=== PATIENT | male | born 1990 | race Hispanic/Latino ===

== ENCOUNTER 2019-06-19 05:46 | Inpatient (IN) ==
[2019-06-19] MEDS ORDERED: NS 1,000 ML IV ONE (06:13)
[2019-06-19] MEDS ORDERED: TORADOL IV ONE (06:13)
--- NOTE | 2019-06-19 06:15 | PROVIDER DOCUMENTATION ---
HPI-Abdominal Pain/GI Problem - General Chief Complaint: Abdominal Pain Stated Complaint: ABD PAIN Time Seen by Provider: 06/19/19 06:01 Home Medications: Home Medication List Medication Instructions Recorded Confirmed Last Taken Type NK [No Home Medications] 06/19/19 06/19/19 Unknown History - History of Present Illness-ABD Nature of Presenting Problems: Pt is a 28 y/o male who presents with c/o abd pain since last night. Pain is present in the lower abd and it radiates to the left, 10/10. associated with difficulty urinating. Per pt has some nausea and low grade fever. Denies any blood in the urine or chills. Denies any constipation or diarrhea. Pt says he had similar pain 4 weeks ago and it was not this bad and resolved. Pt is panamanian speaking and his friend is translating for him. Review of Systems - Adult - REVIEW OF SYSTEMS - ADULT Constitutional: denies: no symptoms reported Eyes: denies: no symptoms reported Ears, Nose, Mouth & Throat: denies: no symptoms reported Cardiovascular: denies: no symptoms reported Respiratory: denies: no symptoms reported Gastrointestinal: reports: see HPI Genitourinary: reports: see HPI, dysuria, flank pain, hesitency. denies: discharge, frequency, frequent UTI's, urinary retention, urgency Musculoskeletal: denies: no symptoms reported Integumentary: denies: no symptoms reported Neurological: denies: no symptoms reported Psychiatric: denies: no symptoms reported Endocrine: denies: no symptoms reported Hematologic/Lymphatic: denies: no symptoms reported Allergic/Immunologic: denies: no symptoms reported Past History - Adult - PAST MEDICAL HISTORY-ADULT Review of Records: reports: Nursing Assessment Review, Medications Reviewed, Social history reviewed & non-contributory. Physical Exam-General - PHYSICAL EXAM-ADULT Initial Vital Signs Reviewed: Yes - CONSTITUTIONAL General Appearance: appears well, alert, mild distress - EYES Eyes: PERRL/EOMI - HEAD, EARS, NOSE, MOUTH & THROAT HENMT: normocephalic/atraumatic, moist mucous membranes, normal ENT inspection - NECK Neck: supple - RESPIRATORY Respiratory: lungs clear, normal breath sounds, no respiratory distress, no accessory muscle use - CARDIOVASCULAR Cardiovascular: regular rate, rhythm, no edema, no JVD, no murmur - GASTROINTESTINAL (ABDOMEN) Abdominal Exam: distended, tenderness (gehneralized, but more pronounced in Suprapubic and LLQ). negative: guarding, rigid - MUSCULOSKELETAL Back Exam: no vertebral tenderness, CVA tenderness (left) Extremity: no pedal edema - SKIN Integumentary: normal color, warm/dry - NEUROLOGIC Neurologic: grossly normal - PSYCHIATRIC Psych/Mental Status: normal mood/affect, oriented x 3 Progress - PLAN OF CARE/RESULTS Progress/Plan/Lab Results: Vital Signs - 8 hr 06/19/19 05:52 Temperature 98.9 F Pulse Rate 87 Respiratory Rate 18 Blood Pressure 122/84 O2 Sat by Pulse Oximetry 98 Orders Category Date Time Status Saline Loc NOW Care 06/19/19 06:[address] ABDOMEN/PELVIS W/O CONTRAST [CT] Stat Exams 06/19/19 06:13 Ordered AMYLASE [CHEM] Stat Lab 06/19/19 06:13 Uncollected CBC WITH ELECTRONIC DIFF [HEME] Stat Lab 06/19/19 06:13 Uncollected COMPREHENSIVE METABOLIC PANEL [CHEM] Stat Lab 06/19/19 06:13 Uncollected LACTATE, PLASMA [CHEM] Stat Lab 06/19/19 06:13 Uncollected LIPASE [CHEM] Stat Lab 06/19/19 06:13 Uncollected UA NIMS W/REFLEX CULT [URINALYSIS] Stat Lab 06/19/19 06:13 Uncollected Ketorolac [Toradol] Med 06/19/19 06:13 Once 30 mg IV NOW ONE Ns 1000 ml IV Bolus X1 Med 06/19/19 06:13 Ordered 0.9% Sodium Chloride Inj [Ns] 1,000 ml IV 999 mls/hr Result Diagrams: 06/19/19 06:12 06/19/19 06:12 - CT/MRI 1 CT Study: Abdomen, Pelvis Impression: Abnormal, See EMR Report - CONSULTS/PCP/HOSPITALIST Notification #1 *Consult/PCP/Hospitalist*: Dr Carl Time Discussed: 08:00 Consult Disposition: Will see in ED Departure - Departure Date of Disposition Decision: 06/19/19 Time of Disposition Decision: 08:04 DIAGNOSIS: Acute appendicitis Disposition: ADMITTED INPATIENT 09 Certified Medical Emergency: Emergent Condition: Stable Referrals and Follow-Ups: None,PCP [Primary Care Provider] - - Critical Care Note This patient required my direct & personal management of CC.: No Attestation - Physician/ JUAN RAMON Attestation Patient care was provided by Advanced Practice Provider:: No The physician spent face to face time with patient:: Yes Advanced Practice Provider documentation review:: Supervising physician onsite and consulted in the evaluation and care of this patient. The physician did have a face to face encounter with the patient.
[2019-06-19 06:35] LABS: BASO# 0.02 X1000 (0.0-0.2); BASO% 0.1 % (0.0-0.8); EOS# 0.04 X1000 (0.0-0.7); EOS% 0.3 % (0.0-10.0); HEMATOCRIT 46.1 % (42.0-52.0); HEMOGLOBIN 14.9 g/dL (14.0-18.0); IMM GRAN# 0.04 X1000 (0.0-0.04); IMM GRAN% 0.3 % (0.0-0.5); LYMPH% 14.4 % (20.5-51.1); MCH 27.9 PG (27-31); MCHC 32.3 g/dL (33-37); MCV 86.2 FL (81-99); MONO# 0.98 X1000 (0.11-0.59); MPV 8.8 FL (7.4-10.4); NEUT# 10.84 X1000 (1.4-6.5); NEUT% 77.9 % (42.2-75.2); PLT 263 X1000 (130-400); RBC 5.35 XMIL (4.7-6.1); RDW 13.5 % (11.5-14.5); WBC 13.92 X1000 (4.8-10.8)
[2019-06-19 07:09] LABS: AGAP 12; ALBUMIN 4.2 g/dL (3.5-5.0); ALKALINE PHOSPHATASE 117 U/L (32-122); AMYLASE 85 U/L (20-200); BUN 11 mg/dL (8-22); CALCIUM 9.3 mg/dL (8.8-10.2); CHLORIDE 103 mmol/L (98-107); COSMO 277; CREATININE 0.8 mg/dL (0.7-1.2); ESTIMATED GFR > 60; GLUCOSE 141 mg/dL (70-104); GOT 32 U/L (10-34); GPT 91 U/L (10-44); LIPASE 26 U/L (13-60); SODIUM 138 mmol/L (136-145); TCO2 23 mmol/L (25-35); TOTAL BILIRUBIN 0.65 mg/dL (0.20-1.00); TOTAL PROTEIN 8.5 g/dL (6.3-8.3)
--- NOTE | 2019-06-19 07:17 | Diag Imaging Result Doc PS360 ---
EXAM: CT ABDOMEN/PELVIS W/O CONTRAST INDICATION: ABD PAIN TECHNIQUE: This exam was performed using automated exposure control, adjustment of mA or kV according to patient size, and/or use of iterative reconstruction technique. COMPARISON: None. FINDINGS: There is mild subsegmental atelectasis at the lung bases. There is moderate to advanced hepatic steatosis. The gallbladder, spleen, pancreas, and adrenal glands are unremarkable. The kidneys and urinary bladder are unremarkable. The appendix is markedly dilated and there is extensive periappendiceal inflammatory stranding indicating appendicitis. The diameter of the appendix measures up to 2.7 cm and there is a phlebolith in the lumen of the appendix. No free abdominal gas is identified. There is a small amount of free fluid layering in the pelvis. I can identify no well-defined abscess. However, small abscesses may not be visible on unenhanced studies. The remainder of the GI tract is unremarkable. IMPRESSION: 1.Marked appendiceal thickening and extensive periappendiceal inflammatory stranding consistent with acute appendicitis. Please see above discussion. 2.Hepatic steatosis. Electronically signed by Emery Jennings 06/19/2019 7:14 AM
[2019-06-19] MEDS ORDERED: ZOSYN 4.5 GM in NS 100 ML IV ONE (08:03)
--- NOTE | 2019-06-19 09:29 | HISTORY AND PHYSICAL ---
CHIEF COMPLAINT: Abdominal pain. HISTORY OF PRESENT ILLNESS: This is a 28-year-old male who presents with severe right lower and left lower abdominal pain that began yesterday afternoon and evening. It has been constant and progressive in severity until he presented the ER and received some pain medicine. It has lessened some since then. The pain was worse with movement, especially walking. Some subjective fever is noted as well as dysuria. However, no chest pain, shortness of breath, diarrhea, constipation or other systemic complaints. PAST MEDICAL HISTORY: None. PAST SURGICAL HISTORY: None. HOME MEDICATIONS: None. ALLERGIES: No known drug allergies. SOCIAL HISTORY: He has a remote history of smoking but has stopped for several years. No alcohol or illicit drug use. He is originally from [place], [place] the country now [place] about 6 [place]. FAMILY HISTORY: Reviewed and noncontributory. REVIEW OF SYSTEMS: Ten systems reviewed and negative except as noted above. PHYSICAL EXAMINATION: VITAL SIGNS: Temperature 100.8 degrees, pulse 96, respirations 17, blood pressure 132/85, O2 saturation 95%. GENERAL: Well-developed, well-nourished male in no distress who looks his stated age. HEENT: Normocephalic, atraumatic. Extraocular muscles intact. Pupils equal, round, reactive to light. Sclerae anicteric. Mucous membranes somewhat dry. NECK: Supple, no thyromegaly. CV: Mildly tachycardic and regular. RESPIRATORY: No increased work of breathing. GI: Soft, mildly distended. He is diffusely tender especially in the right lower quadrant. He has a Rovsing sign. He has a positive heel tap. EXTREMITIES: No clubbing, cyanosis, or edema. SKIN: Warm and dry. No rash. MUSCULOSKELETAL: Moves all extremities equally and well. LABORATORY: White blood cell count 13.9, hemoglobin 14.9, platelet count 263,000. Complete metabolic profile reviewed and unremarkable. IMAGING: CT of abdomen and pelvis was reviewed showing a markedly dilated appendix with extensive periappendiceal inflammatory stranding with a phlebolith in the lumen of the appendix. There is no free abdominal gas. There is a small amount of free fluid in the pelvis. ASSESSMENT AND PLAN: A 28-year-old male with acute appendicitis. There is a possibility of a focal perforation or early abscess. He is hemodynamically stable and I have recommended laparoscopic versus open appendectomy today. I discussed the risks and benefits with him including bleeding, infection, incisional hernia, injury to surrounding organs such as the intestines and other imponderables. He understands and agrees to proceed. cc: Benedicto Carl MD
[2019-06-19] MEDS: NS 1,000 ML IV SCH ×3 (09:30→23:48)
[2019-06-19 09:56] LABS: URINE SOURCE CLEAN CATCH
[2019-06-19] MEDS ORDERED: OFIRMEV 1000 MG/ISOTONIC SOLN 1,000 MG/100 ML BOTTLE IV ONE (10:00)
[2019-06-19 10:08] LABS: BILIRUBIN URINE NEGATIVE (NEGATIVE); BLOOD URINE NEGATIVE (NEGATIVE); COLOR YELLOW; GLUCOSE URINE NEGATIVE (NEGATIVE); KETONE URINE NEGATIVE (NEGATIVE); LEUKOCYTES URINE NEGATIVE (NEGATIVE); NITRITE URINE NEGATIVE (NEGATIVE); PROTEIN URINE TRACE mg/dL (NEGATIVE); SP GRAVITY URINE 1.024; TURBIDITY URINE CLEAR (CLEAR); UROBILINOGEN URINE NORMAL (NORMAL)
[2019-06-19 10:12] LABS: UR EPITHELIAL CELLS <10 /HPF (<10); URINE BACTERIA NEGATIVE /HPF; URINE RBC <10 /HPF (<10); URINE WBC <10 /HPF (<10)
[2019-06-19] MEDS ORDERED: HURRICAINE SPRAY (DOSE) ONE (10:19)
[2019-06-19] MEDS ORDERED: SENSORCAINE 0.5%-EPI 1:200,000 ONE (10:21)
[2019-06-19] MEDS ORDERED: XYLOCAINE-MPF 2% ONE ×2 (10:22→11:15)
[2019-06-19] MEDS ORDERED: ROBINUL ONE ×2 (10:22→10:26)
[2019-06-19] MEDS ORDERED: DIPRIVAN 1% ONE (10:22)
[2019-06-19] MEDS ORDERED: LR 1,000 ML ONE (10:22)
[2019-06-19] MEDS ORDERED: VERSED ONE (10:22)
[2019-06-19] MEDS ORDERED: FENTANYL ONE (10:22)
[2019-06-19] MEDS ORDERED: QUELICIN (DOSE) ONE (10:26)
[2019-06-19] MEDS ORDERED: ZEMURON ONE ×4 (10:26→11:52)
[2019-06-19] MEDS ORDERED: NEOSTIGMINE ONE (10:28)
[2019-06-19] MEDS ORDERED: DECADRON ONE (10:50)
[2019-06-19] MEDS ORDERED: ZOFRAN ONE (10:50)
[2019-06-19] MEDS ORDERED: OFIRMEV 1000 MG/ISOTONIC SOLN 1,000 MG/100 ML BOTTLE ONE (11:02)
[2019-06-19] MEDS ORDERED: DILAUDID ONE (11:59)
[2019-06-19] MEDS ORDERED: SODIUM CHLORIDE 0.9% 10 ML ONE (11:59)
[2019-06-19 13:19] LABS: URINE SOURCE CATH
[2019-06-19] MEDS ORDERED: NS 1,000 ML ONE (13:20)
[2019-06-19 13:33] LABS: BILIRUBIN URINE NEGATIVE (NEGATIVE); BLOOD URINE NEGATIVE (NEGATIVE); COLOR YELLOW; GLUCOSE URINE NEGATIVE (NEGATIVE); KETONE URINE NEGATIVE (NEGATIVE); LEUKOCYTES URINE NEGATIVE (NEGATIVE); NITRITE URINE NEGATIVE (NEGATIVE); PH URINE 6.5; PROTEIN URINE 30 mg/dL (NEGATIVE); SP GRAVITY URINE 1.024; TURBIDITY URINE CLEAR (CLEAR); UROBILINOGEN URINE NORMAL (NORMAL)
[2019-06-19 13:38] LABS: UR EPITHELIAL CELLS <10 /HPF (<10); URINE BACTERIA NEGATIVE /HPF; URINE RBC <10 /HPF (<10); URINE WBC <10 /HPF (<10)
[2019-06-19] MEDS ORDERED: TYLENOL PO PRN (14:26)
[2019-06-19] MEDS ORDERED: ZOFRAN IV PRN (14:26)
[2019-06-19] MEDS: ZOSYN 3.375 GM in NS 50 ML IV SCH ×2 (16:38→20:32)
[2019-06-19] MEDS: DILAUDID IV PRN ×2 (19:40→22:47)
--- NOTE | 2019-06-19 20:11 | OPERATIVE NOTE ---
PROCEDURE DATE: 06/19/2019 PREOPERATIVE DIAGNOSIS: Acute appendicitis. POSTOPERATIVE DIAGNOSIS: Ruptured appendicitis. SURGEON: Benedicto Carl MD PATIENT SUPPORT TECH: Evangelista Lopez MD. 2ND PATIENT SUPPORT TECH: lIa TALAMANTES. PROCEDURE: 1. Diagnostic laparoscopy. 2. Open appendectomy with drainage of intra-abdominal abscess. ANESTHESIA: General. ESTIMATED BLOOD LOSS: 50 mL. COMPLICATIONS: None apparent. SPECIMENS: Appendix. FINDINGS: He had a large appendiceal phlegmon with purulent fluid in the right lower quadrant, pericolic gutter, and pelvis, consistent with a ruptured appendicitis. TECHNIQUE: He was brought to the operating room and placed supine on the table. General anesthesia was induced. He was prepped and draped in the usual sterile fashion. 0.25% Marcaine with epinephrine was used to anesthetize our incisions. A 12 mm incision was made just above the umbilicus. The fascia was exposed and incised sharply. Entry into the peritoneal cavity was obtained under direct vision with the Optiview device. Pneumoperitoneum was established. The camera was inserted. There was no evidence of injury to underlying structures. He was placed in Trendelenburg. Two 5 mm incision ports were placed under direct vision, one in the left lower quadrant, and one in the lower suprapubic midline. I began by exploring the right lower quadrant and found the above findings. We suctioned out some of the purulent fluid and sent it for culture. After several minutes, it became apparent that visualization was poor. The phlegmon was going to be very difficult to mobilize laparoscopically, and I felt it would be safer to do this operation through an open incision. I then made an oblique incision in the right lower quadrant in the McBurney's fashion and carried this down through the subcutaneous tissue, first with the knife, then cautery. We opened the anterior fascia with cautery and then opened the posterior fascia with cautery. Along the way, I did ligate the inferior epigastric vessel proximally and distally with 3-0 silk. Once we were safely in the abdominal cavity, I then placed a wound protector and proceeded to mobilize the cecum and ascending colon along the white line of Toldt using electrocautery, and began dissecting the ascending colon up out of the retroperitoneum, bringing it toward our wound. Using finger fracture technique, I was able to separate the phlegmonous mass around the appendix away from the terminal ileum and cecum, also using cautery to divide the fibrinous rind around it. I did come across the appendiceal artery with cautery and suture ligated the proximal end with 3-0 silk. Once we had all of the soft tissue isolated around the stump of the appendix coming off the cecum, the base of the appendix appeared to have an area of rupture, but was soft and pliable and nondistended, and I felt I could transect the base safely. The stump was ligated with 2-0 silk. I then transected the remaining portion of the appendix with the scissors and it was passed off the field. The stump of the appendix was then oversewn with a 3-0 silk [id number] Lembert type suture. We then washed out the pelvis, right lower quadrant, right pericolic gutter and up over the liver with warm saline and suctioned this out. A stab incision was made in the right lower quadrant and a Nick drain was brought in through this incision along the appendiceal stump in the right lower quadrant. Dr. Lopez was present throughout all braun portions of the case and was very helpful for retraction and exposure, holding the bowel out of the way while the appendix could be isolated and resected, and assisting with the closure. I closed the peritoneum with a running #1 Vicryl. I closed the camera supraumbilical port site incision with a [id number] 0 Vicryl. The ports were removed. The anterior fascia in the right lower quadrant was closed with a running #1 Maxon. The skin was closed with skin clips. He was awakened in stable condition and transferred to the recovery room without apparent complication. cc: Benedicto Carl MD
[2019-06-20] MEDS: ZOSYN 3.375 GM in NS 50 ML IV SCH ×4 (02:11→20:13)
[2019-06-20] MEDS: DILAUDID IV PRN ×2 (03:44→08:20)
[2019-06-20 08:16] LABS: AGAP 12; BUN 10 mg/dL (8-22); CALCIUM 8.6 mg/dL (8.8-10.2); CHLORIDE 103 mmol/L (98-107); COSMO 278; CREATININE 0.7 mg/dL (0.7-1.2); ESTIMATED GFR > 60; GLUCOSE 125 mg/dL (70-104); POTASSIUM 4.2 mmol/L (3.5-5.1); SODIUM 139 mmol/L (136-145); TCO2 24 mmol/L (25-35)
[2019-06-20 08:17] LABS: BASO# 0.01 X1000 (0.0-0.2); BASO% 0.1 % (0.0-0.8); HEMATOCRIT 39.3 % (42.0-52.0); HEMOGLOBIN 12.5 g/dL (14.0-18.0); IMM GRAN# 0.03 X1000 (0.0-0.04); IMM GRAN% 0.2 % (0.0-0.5); LYMPH# 1.71 X1000 (1.2-3.4); LYMPH% 10.4 % (20.5-51.1); MCH 27.5 PG (27-31); MCHC 31.8 g/dL (33-37); MCV 86.6 FL (81-99); MONO# 1.31 X1000 (0.11-0.59); MONO% 7.9 % (1.7-9.3); MPV 8.9 FL (7.4-10.4); NEUT# 13.45 X1000 (1.4-6.5); NEUT% 81.4 % (42.2-75.2); PLT 244 X1000 (130-400); RBC 4.54 XMIL (4.7-6.1); RDW 13.3 % (11.5-14.5); WBC 16.51 X1000 (4.8-10.8)
[2019-06-20] MEDS: NS 1,000 ML IV SCH (08:21)
[2019-06-20] MEDS: PERIDEX MT SCH ×2 (08:22→20:13)
--- NOTE | 2019-06-20 10:36 | GENERAL SURGERY PROGRESS NOTE ---
DATE: 06/20/2019 SUBJECTIVE: The patient is doing better. He only reports a small amount of pain. No nausea. He is tolerating a clear liquid diet. OBJECTIVE: Vital signs: He is afebrile. Vital signs are stable. General: He is awake, alert, oriented x3. No acute distress. Gastrointestinal: Soft, appropriately tender. Incisional dressing is clean and dry. GAYATHRI drain serosanguineous. URINE OUTPUT: 2100 mL. LABORATORY DATA: White blood cell count 53511, hemoglobin 12.5, hematocrit 39. Electrolytes reviewed and unremarkable. ASSESSMENT AND PLAN: A 28-year-old male, postoperative day 1, open appendectomy with drainage of intra-abdominal abscess. We will continue his Zosyn. I have encouraged more activity. We will advance his diet as tolerated. Switch him to maintenance fluids and oral pain medicine and discontinue the Desir catheter. cc: Benedicto Carl MD
[2019-06-20] MEDS: D5 1/2 NS + KCL 20 MEQ 1,000 ML IV SCH ×2 (11:49→22:59)
[2019-06-20] MEDS: NORCO-10 PO PRN ×2 (13:43→20:09)
[2019-06-21] MEDS: ZOSYN 3.375 GM in NS 50 ML IV SCH ×4 (01:26→20:29)
[2019-06-21 07:49] LABS: HEMATOCRIT 37.8 % (42.0-52.0); HEMOGLOBIN 11.7 g/dL (14.0-18.0); MCH 27.2 PG (27-31); MCV 87.9 FL (81-99); MPV 8.7 FL (7.4-10.4); RBC 4.3 XMIL (4.7-6.1); RDW 13.2 % (11.5-14.5); WBC 13.52 X1000 (4.8-10.8)
[2019-06-21] MEDS: PERIDEX MT SCH ×2 (08:08→20:29)
[2019-06-21] MEDS: NORCO-10 PO PRN ×3 (08:08→20:29)
[2019-06-21] MEDS: D5 1/2 NS + KCL 20 MEQ 1,000 ML IV SCH (14:14)
--- NOTE | 2019-06-21 14:27 | PROGRESS NOTE ---
DATE: 06/21/2019 SUBJECTIVE: Mr. Howard is status post open appendectomy for ruptured appendix per Dr. Carl on 06/19/2019. His abdomen is distended today but he is eating some regular diet. He does not speak Maltese. His incisions are dressed. He is awake, cooperative, does not appear to be uncomfortable. OBJECTIVE: His heart rate is 86, blood pressure 129/72, O2 saturation 98%. He has a low-grade temperature of 99.1 degrees. His white blood cell count is improving, it has gone from 16 to 13. He does have a drain in place which is draining mostly serous fluid. He is receiving IV Zosyn. PLAN: We will continue IV antibiotics. I will leave his Nick drain in for now. We will try to increase his activity. cc: MD Benedicto Cooper MD
[2019-06-22] MEDS: ZOSYN 3.375 GM in NS 50 ML IV SCH ×4 (02:25→20:22)
[2019-06-22] MEDS: D5 1/2 NS + KCL 20 MEQ 1,000 ML IV SCH ×2 (02:25→15:17)
[2019-06-22] MEDS: NORCO-10 PO PRN ×3 (06:50→20:22)
[2019-06-22] MEDS: PERIDEX MT SCH ×2 (09:20→20:22)
--- NOTE | 2019-06-22 10:37 | PROGRESS NOTE ---
DATE: 06/22/2019 SUBJECTIVE: Mr. Howard is now postop day 3 from an open appendectomy for acute appendicitis with rupture. He is on a regular diet. He is awake, appears to be mostly comfortable. He has not had much drainage out of his Nick drain, right lower quadrant of his abdomen. He is on IV Zosyn. OBJECTIVE: His heart rate remains 101-103, blood pressure 136/68, O2 saturation 95%. He has a low-grade temperature of 99.5 degrees. He was found to have a recent white blood cell count but it was trending down. He is voiding without difficulty. He has been good about getting up in a chair. PLAN: I will remove his Nick drain which is not draining much, may be clogged. We will continue his IV antibiotics. Regular diet. His wounds are healing well. We will check a CBC in the morning. cc: MD Benedicto Cooper MD
[2019-06-23] MEDS: D5 1/2 NS + KCL 20 MEQ 1,000 ML IV SCH ×2 (00:08→06:23)
[2019-06-23] MEDS: ZOSYN 3.375 GM in NS 50 ML IV SCH ×2 (02:36→09:14)
[2019-06-23 07:37] VITALS: BP 129/83
[2019-06-23 07:56] LABS: BASO# 0.02 X1000 (0.0-0.2); BASO% 0.2 % (0.0-0.8); EOS# 0.28 X1000 (0.0-0.7); EOS% 3.1 % (0.0-10.0); HEMATOCRIT 38.6 % (42.0-52.0); HEMOGLOBIN 12.5 g/dL (14.0-18.0); IMM GRAN% 1.1 % (0.0-0.5); LYMPH# 1.69 X1000 (1.2-3.4); LYMPH% 18.4 % (20.5-51.1); MCHC 32.4 g/dL (33-37); MCV 86.4 FL (81-99); MONO# 1.04 X1000 (0.11-0.59); MONO% 11.4 % (1.7-9.3); MPV 8.4 FL (7.4-10.4); NEUT# 6.03 X1000 (1.4-6.5); NEUT% 65.8 % (42.2-75.2); PLT 301 X1000 (130-400); RBC 4.47 XMIL (4.7-6.1); WBC 9.16 X1000 (4.8-10.8)
[2019-06-23] MEDS: PERIDEX MT SCH (09:15)
[2019-06-23] MEDS ORDERED: FLU VACCINE IM ONE (09:33)
--- NOTE | 2019-06-23 09:34 | GENERAL SURGERY PROGRESS NOTE ---
DATE: 06/23/2019 SUBJECTIVE: The patient has some residual right lower quadrant pain, but otherwise is doing well. He is eating, ambulating, voiding, and passing gas. He has had 1 bowel movement yesterday. OBJECTIVE: Vital Signs: He is afebrile. His vital signs are stable. General: He is awake, alert, oriented x3. No acute distress. Gastrointestinal: Soft, appropriately tender. Incisions are clean, dry, and intact without surrounding erythema. LABORATORY: White cell count 9. ASSESSMENT AND PLAN: A 28-year-old male now postoperative day 4 open appendectomy for ruptured appendicitis. He has made good progress. We will discharge him home today. Instructions were given. cc: Benedicto Carl MD
--- NOTE | 2019-06-23 10:03 | DISCHARGE SUMMARY ---
ADMISSION DATE: 06/19/2019 DISCHARGE DATE: 06/23/2019 ADMITTING DIAGNOSIS: Acute appendicitis. DISCHARGE DIAGNOSIS: Ruptured appendicitis. PROCEDURE: Laparoscopic converted open appendectomy and drainage of intra-abdominal abscess. HOSPITAL COURSE: Hospital course the patient was admitted with acute appendicitis on 06/19/2019, Zosyn was started. He was taken to the operating room. For full details of the operation please see the dictated report. Postoperatively, he did well. He had a low-grade fever within the 1st 24 hours, which resolved. He remained on Zosyn throughout his hospital stay. His pain improved. His activity improved. He was able to ambulate in the halls. His diet was slowly advanced. His drain was taken out on 06/22/2019. His periappendiceal abscess culture grew out Bacteroides fragilis. His blood cultures were negative. He was discharged on 06/23/2019 in stable condition. DISCHARGE INSTRUCTIONS: No lifting over 15 pounds. He may shower or sponge bathe. He may eat a regular diet as tolerated. He should follow up with Dr. Carl in 1 week. DISCHARGE MEDICATIONS: 1. New prescription for [place] 10 mg 1 p.o. q. 6 hours p.r.n. pain. 2. Colace 100 mg p.o. b.i.d. p.r.n. constipation. cc: Benedicto Carl MD
== END 2019-06-23 10:35 | disposition home or self-care (01) | DRG 340 ==
LOC: ED 05:46 → OR 10:27 → 4N 10:27 → OBSVTOIN 14:17
PROVIDERS: ADMIT Surgery; ATTEND Surgery